=== PATIENT | male | born 1995 | race Caucasian/White ===

== ENCOUNTER 2024-06-01 01:05 | Emergency (ER) | payer SELFPAY ==
[~2024-06-01] VITALS: Ht 170.2 cm; Wt 90.7 kg
[2024-06-01 01:19] VITALS: BP 142/78; TEMP 98.5; O2SAT 98
== END 2024-06-01 03:21 | disposition home or self-care (01) ==
LOC: ER 01:08
DX: J06.9 Acute upper respiratory infection, unspecified (principal)
CPT/HCPCS: 86403-TC; 87070-TC